=== PATIENT | female | born 1935 | race Caucasian/White ===

== ENCOUNTER 2018-08-06 03:57 | Inpatient (IN) | payer MEDICARE, OTHER | END 2018-09-27 12:37 | disposition E | LOC: ER 03:57 → ED HOLD 05:06 → ORTHO 4S 08:28 | PROC: 0SRR0JA Replacement of Right Hip Joint, Femoral Surface with Synthetic Substitute, Uncemented, Open Approach (ICD-10-PCS; principal; 2018-08-10 15:46) | DX: S72.001A Fracture of unspecified part of neck of right femur, initial encounter for closed fracture (principal); N18.6 End stage renal disease; L89.153 Pressure ulcer of sacral region, stage 3; E43 Unspecified severe protein-calorie malnutrition; K65.2 Spontaneous bacterial peritonitis; J44.9 Chronic obstructive pulmonary disease, unspecified; I73.9 Peripheral vascular disease, unspecified ==